=== PATIENT | female | born 1960 | race Caucasian/White ===

== ENCOUNTER 2016-05-11 10:29 | Emergency (ER) | payer MEDICARE, OTHER ==
[~2016-05-11 10:29] MED LIST: ACETAMINOPHEN325 MG PO; ASPIR 8181 MG PO; ATROVENT (00.2 MG/ML NEB; BUMEX1 MG PO; BUPROPION HCL200 MG PO; CELEXA20 MG PO; COLACE100 MG PO; COLESTID1 GM PO; COUMADIN10 MG PO; DETROL 2MG TABLE2 MG PO; HUMALOG100 UNIT/1 SQ; K-DUR20 MEQ PO; LANTUS **100 UNITS/ SC; LANTUS100 UNIT/1 SQ; LIPITOR40 MG PO; LOPRESSOR25 MG PO; MAALOX ADVANCE355 ML PO; MELATONIN1 MG PO; MERREM1 GM IV; METFORMIN HCL500 MG PO; MILK OF MA400 MG/5 M PO; PRAVACHOL40 MG PO; PROTONIX 40MG T40 MG PO; SYNTHROID150 MCG PO; TRAMADOL HCL50 MG PO; VANCOMYCIN1.5 GM/250 IV; XOPENEX (11.25 MG/3 PO; ZANTAC300 MG PO; ZESTRIL5 MG PO; [UNRECOGNIZED DRUG - OTHER] OD
== END 2016-05-11 12:30 | disposition home or self-care (01) ==
LOC: FER 10:29
DX: S93.401A Sprain of unspecified ligament of right ankle, initial encounter (principal); H10.9 Unspecified conjunctivitis; I51.9 Heart disease, unspecified; E11.9 Type 2 diabetes mellitus without complications; Z86.73 Personal history of transient ischemic attack (TIA), and cerebral infarction without residual deficits; Z88.1 Allergy status to other antibiotic agents; W22.01XA Walked into wall, initial encounter; Y92.009 Unspecified place in unspecified non-institutional (private) residence as the place of occurrence of the external cause
CPT/HCPCS: 73610; 73630; 99283

== ENCOUNTER 2016-07-06 17:48 | Emergency (ER) | payer MEDICARE, OTHER ==
[2016-07-06 19:35] LABS: BASOPHIL 0.9 % (0-2); EOSINOPHIL 4.2 % (0-5); HCT 31.4 % (37.0-47.0); HGB 10.4 g/dl (12.5-16.0); LYMPHOCYTE 19.2 % (15-48); MCH 28.9 pg (25.0-31.0); MCHC 33.1 g/dL (32.0-36.0); MCV 87.2 fL (78.0-100.0); MONOCYTE 11.2 % (0-12); MPV 12.6 fL (6.0-9.5); NEUTROPHIL 64.5 % (41-80); RDW 13.6 % (11.5-14.0); WBC 6.9 K/uL (4.0-10.5)
[2016-07-06 19:46] LABS: PLT 30 K/uL (150-400)
[2016-07-06 19:53] LABS: LACTIC ACID 1.7 mmol/L (0.5-2.2)
[2016-07-06 19:57] LABS: ALBUMIN 3.8 g/dL (3.5-5.0); BILIRUBIN - TOTAL 0.5 mg/dL (0.1-1.0); CREATININE 1.8 mg/dL (0.5-1.0); GLOBULIN (CALCULATION) 2.9 g/dL (2.2-4.2); POTASSIUM 4.3 mmol/L (3.5-5.1); TOTAL PROTEIN 6.7 g/dL (6.4-8.3)
== END 2016-07-06 21:37 | disposition home or self-care (01) ==
LOC: FER 17:48
PROVIDERS: Nurse Practitioner
DX: L03.116 Cellulitis of left lower limb (principal); E11.9 Type 2 diabetes mellitus without complications; I50.9 Heart failure, unspecified; Z88.1 Allergy status to other antibiotic agents; Z89.512 Acquired absence of left leg below knee
CPT/HCPCS: 36415; 80053; 83605; 85025; 87040

== ENCOUNTER 2016-07-17 13:20 | Emergency (ER) | payer MEDICARE, OTHER ==
[2016-07-17 14:39] LABS: INR 1.08 (0.9-1.2); PROTHROMBIN TIME 13.6 SECONDS (11.7-14.0)
[2016-07-17 14:40] LABS: PTT 32.1 SECONDS (23.2-31.4)
[2016-07-17 14:56] LABS: BILIRUBIN - TOTAL 0.9 mg/dL (0.1-1.0); CREATININE 1.6 mg/dL (0.5-1.0); GLOBULIN (CALCULATION) 3.3 g/dL (2.2-4.2); TOTAL PROTEIN 7.3 g/dL (6.4-8.3)
== END 2016-07-17 18:20 | disposition other institution (70) ==
LOC: FER 13:20
PROVIDERS: Internal Medicine
DX: D69.6 Thrombocytopenia, unspecified (principal); R09.89 Other specified symptoms and signs involving the circulatory and respiratory systems; I25.2 Old myocardial infarction; I10 Essential (primary) hypertension; I25.10 Atherosclerotic heart disease of native coronary artery without angina pectoris; E11.9 Type 2 diabetes mellitus without complications; Z86.73 Personal history of transient ischemic attack (TIA), and cerebral infarction without residual deficits; Z88.1 Allergy status to other antibiotic agents; Z89.522 Acquired absence of left knee
CPT/HCPCS: 36415; 71010; 80053; 84484; 85610; 85730; 93005; J1940